=== PATIENT | male | born 1950 | race Caucasian/White ===

== ENCOUNTER → 2023-09-25 13:38 | Outpatient (REF) | payer MEDICARE, OTHER, SELFPAY | LOC: HWRAD 13:38 | PROVIDERS: ATTENDING PHYSICIAN Nurse Practitioner Gerontology; FAMILY PHYSICIAN Family Medicine | DX: M25.511 Pain in right shoulder (principal) | CPT/HCPCS: 73030 ==

== ENCOUNTER → 2023-12-20 11:04 | Outpatient (REF) | payer MEDICARE, OTHER, SELFPAY | LOC: HWRAD 11:04 | PROVIDERS: ATTENDING PHYSICIAN Family Medicine | DX: R10.32 Left lower quadrant pain (principal); K59.03 Drug induced constipation; F19.20 Other psychoactive substance dependence, uncomplicated; G62.9 Polyneuropathy, unspecified; G89.29 Other chronic pain | CPT/HCPCS: 74177; Q9967 ==

== ENCOUNTER → 2024-01-01 06:16 | Day surgery (SDC) | payer MEDICARE, OTHER, SELFPAY | LOC: GI 06:16 | PROVIDERS: ATTENDING PHYSICIAN Internal Medicine | DX: R10.84 Generalized abdominal pain (principal); R93.3 Abnormal findings on diagnostic imaging of other parts of digestive tract; K57.30 Diverticulosis of large intestine without perforation or abscess without bleeding; K63.5 Polyp of colon | CPT/HCPCS: 45385; 45380; 88305 ==

== ENCOUNTER 2024-03-26 06:40 | Outpatient (RCR) | payer MEDICARE, OTHER, SELFPAY | END 2024-03-26 23:59 | disposition home or self-care (01) | LOC: RPT 06:40 | PROVIDERS: ATTENDING PHYSICIAN Internal Medicine; FAMILY PHYSICIAN Family Medicine | DX: K59.4 Anal spasm (principal); M62.89 Other specified disorders of muscle; Z73.6 Limitation of activities due to disability; K59.09 Other constipation | CPT/HCPCS: 97163; 97530 ==

== ENCOUNTER 2024-04-23 12:47 | Outpatient (RCR) | payer MEDICARE, OTHER, SELFPAY | END 2024-04-23 23:59 | disposition home or self-care (01) | LOC: RPT 12:47 | PROVIDERS: ATTENDING PHYSICIAN Internal Medicine; FAMILY PHYSICIAN Family Medicine | DX: K59.4 Anal spasm (principal); M62.89 Other specified disorders of muscle; Z73.6 Limitation of activities due to disability; K59.09 Other constipation | CPT/HCPCS: 97140; 97530 ==

== ENCOUNTER → 2024-05-27 11:03 | Outpatient (REF) | payer MEDICARE, OTHER, SELFPAY | LOC: HWRCS 11:03 | PROVIDERS: ATTENDING PHYSICIAN Internal Medicine Cardiovascular Disease; FAMILY PHYSICIAN Family Medicine | DX: I25.10 Atherosclerotic heart disease of native coronary artery without angina pectoris (principal); R42 Dizziness and giddiness | CPT/HCPCS: 93306 ==

== ENCOUNTER 2024-06-25 12:53 | Outpatient (RCR) | payer MEDICARE, OTHER, SELFPAY | END 2024-06-25 23:59 | disposition home or self-care (01) | LOC: RPT 12:53 | PROVIDERS: ATTENDING PHYSICIAN Internal Medicine; FAMILY PHYSICIAN Family Medicine | DX: K59.4 Anal spasm (principal); M62.89 Other specified disorders of muscle; Z73.6 Limitation of activities due to disability; K59.09 Other constipation; R35.1 Nocturia | CPT/HCPCS: 97112; 97140; 97530 ==

== ENCOUNTER 2024-08-27 12:48 | Outpatient (RCR) | payer MEDICARE, OTHER, SELFPAY | END 2024-08-27 23:59 | disposition home or self-care (01) | LOC: RPT 12:48 | PROVIDERS: ATTENDING PHYSICIAN Internal Medicine; FAMILY PHYSICIAN Family Medicine | DX: K59.4 Anal spasm (principal); M62.89 Other specified disorders of muscle; Z73.6 Limitation of activities due to disability; K59.09 Other constipation; R35.1 Nocturia | CPT/HCPCS: 97530 ==